=== PATIENT | male | born 1975 | race Caucasian/White ===

== ENCOUNTER → 2025-01-11 | Outpatient (CLI) | payer OTHER ==
--- NOTE | 2025-01-11 16:23 | HMCIMG ---
EXAM: US Abdomen complete CLINICAL HISTORY: hepatitis B TECHNIQUE: Real-time ultrasound of the abdomen (complete) with image documentation. COMPARISON: None provided. FINDINGS: LIVER: The liver is normal in size measuring 14 cm. No definite hepatic focal lesion seen. GALLBLADDER: Gallbladder wall thickness is normal measuring 2 mm. No gallstone. No pericholecystic fluid. COMMON BILE DUCT: The common bile duct measures 5 mm. PANCREAS: Pancreas normal. KIDNEYS: Both kidneys are normal. The right kidney measures 9.7 x 3.9 x 4.5 cm. The left kidney measures 9.6 x 5.0 x 4.2 cm. No hydronephrosis. SPLEEN: The spleen is normal-sized and measures 9.4 cm. AORTA: The aorta is seen within normal limits. No aneurysm. IVC: The IVC is seen within normal limits. IMPRESSION: Unremarkable complete abdominal ultrasound. /Edi
== END | disposition home or self-care (01) ==
LOC: RAH 07:30 → EEVIPCON 07:30
PROVIDERS: ATTEND Family Medicine
DX: B19.10 Unspecified viral hepatitis B without hepatic coma (principal)
CPT/HCPCS: 76700

== ENCOUNTER → 2025-01-27 | Outpatient (CLI) | payer OTHER ==
--- NOTE | 2025-01-27 21:10 | HMCIMG ---
EXAM: CT Temporal Bones without Intravenous Contrast. CLINICAL HISTORY: Otalgia, left ear pain. TECHNIQUE: Axial computed tomography images of the temporal bones without intravenous contrast. Dose reduction technique was used including one or more of the following: automated exposure control, adjustment of mA and kV according to patient size, and/or iterative reconstruction. Total exam DLP is 351. CONTRAST: NONE. COMPARISON: None provided. FINDINGS: RIGHT OSSICLES AND MIDDLE EAR: The ossicles are intact. No middle ear fluid. RIGHT COCHLEA: Normal 2-1/2 turns. RIGHT VESTIBULE: Unremarkable. RIGHT SEMICIRCULAR CANALS: No dehiscence. RIGHT VESTIBULAR AND COCHLEAR AQUEDUCTS: No enlargement. RIGHT FACIAL NERVE CANAL: No widening. RIGHT INTERNAL AUDITORY CANAL: No enlargement. RIGHT EXTERNAL AUDITORY CANAL: Hypodense contents are present, possibly representing EAR WAX with slight thickening of the tympanic membrane. RIGHT CAROTID CANAL: No aberrancy. RIGHT JUGULAR FORAMEN: No enlargement. RIGHT MASTOID AIR CELLS: Clear. RIGHT TEMPOROMANDIBULAR JOINT: No dislocation. LEFT OSSICLES AND MIDDLE EAR: The ossicles are intact. No middle ear fluid. LEFT COCHLEA: Normal 2-1/2 turns. LEFT VESTIBULE: Unremarkable. LEFT SEMICIRCULAR CANALS: No dehiscence. LEFT VESTIBULAR AND COCHLEAR AQUEDUCTS: No enlargement. LEFT FACIAL NERVE CANAL: No widening. LEFT INTERNAL AUDITORY CANAL: No enlargement. LEFT EXTERNAL AUDITORY CANAL: Similar hypodense contents are present to be occupying the left external auditory canal with thickening of the tympanic membrane which is slightly retracted medially. There is no bone erosion. LEFT CAROTID CANAL: No aberrancy. LEFT JUGULAR FORAMEN: No enlargement. LEFT MASTOID AIR CELLS: Clear. LEFT TEMPOROMANDIBULAR JOINT: No dislocation. BONES: No acute osseous abnormality. VISUALIZED PARANASAL SINUSES: There is minimal mucosal thickening of the left maxillary sinus. There is deviation of the bony nasal septum toward the left with formation of an osseous septal spur. PERIAURICULAR SOFT TISSUES: Unremarkable. IMPRESSION: 1. Hypodense contents in the external auditory canals bilaterally, possibly representing earwax. 2. Thickening of the tympanic membranes bilaterally, which are slightly retracted medially. 3. Minimal mucosal thickening of the left maxillary sinus. 4. Nasal septal deviation with osseous septal spur. /[place]
== END | disposition home or self-care (01) ==
LOC: RAH 13:00 → EEVIPCON 13:30
PROVIDERS: ATTEND Family Medicine
DX: H92.02 Otalgia, left ear (principal); J34.2 Deviated nasal septum
CPT/HCPCS: 70480